=== PATIENT | female | born 1955 | race Caucasian/White ===

== ENCOUNTER 2016-12-05 15:54 | Inpatient (IN) | payer MEDICARE, OTHER ==
[~2016-12-05] VITALS: Ht 170.2 cm; Wt 92.1 kg
[2016-12-05] MEDS ORDERED: VENTOLIN HFA 90 MCG INHALER INH (16:13)
[2016-12-05] MEDS ORDERED: METHADONE HCL 10 MG TABLET PO (16:13)
[2016-12-05] MEDS ORDERED: [UNRECOGNIZED DRUG - SUPPLY] INH (16:13)
--- NOTE | 2016-12-05 16:13 | NUR ---
PATIENT IS AWAKE AND ALERT. SITTER GREG AT BEDSIDE. PT IS COOPERATIVE.
--- NOTE | 2016-12-05 17:24 | NUR ---
REPORT GIVEN TO JEAN-PIERRE IN [facility]. PATIENT AWARE OF PENDING ADMISSION.
--- NOTE | 2016-12-05 18:30 | NUR ---
Pt arrived to unit, depressed, needy, and manipulative. Frequently making requests from staff. States she still actively feels suicidal and has plans to "cut my arteries with a knife." No aggressive or combative behavior noted. Able to make all needs known. Denies pain or discomfort at this time.
[2016-12-05 20:00] VITALS: BP 123/88
--- NOTE | 2016-12-05 21:40 | NUR ---
Pt ANXIOUS, RESTLESS, CRYING AND NEEDY AT BEGINNING OF SHIFT. KLONOPIN 0.5mg ADMINISTERED WITH MODERATE EFFECT. Pt SLEPT FOR APPROXIMATELY 1.5 HOURS AFTER KLONOPIN GIVEN. Pt THEN WOKE UP AND C/O ANXIETY AND INSOMNIA. RESTORIL 15mg ADMINISTERED, WILL MONITOR FOR EFFECT.
--- NOTE | 2016-12-06 04:49 | NUR ---
Pt AWOKE C/O "LOW BLOOD SUGAR". BLOOD SUGAR CHECKED AND RESULTED AT 88.
[2016-12-06 07:30] VITALS: BP 117/83
[2016-12-06 15:13] VITALS: BP 124/91
--- NOTE | 2016-12-06 15:28 | NUR ---
Pt appears to be needy and manipulative. Frequently threatening staff by calling her right of way appraiser, "you guys are gonna be in so much trouble because the person taking care of my service dog is my public safety officer." Pt states that she was suicidal yesterday but today she is OK and wants to be released today. Dr. Hoyt presented her with a 14 day hold. Pt states she only said she wanted to hurt herself so she could get her Ativan and "immediate care." Will continue to monitor.
[2016-12-06 20:00] VITALS: BP 122/89
[2016-12-07 07:58] VITALS: BP 119/66
[2016-12-07 17:22] VITALS: BP 91/63
[2016-12-07 20:15] VITALS: BP 102/65
[2016-12-08 07:30] VITALS: BP 99/62
[2016-12-08 07:41] LABS: BASOPHILS % (AUTO) 0.7 % (0.0-2.0); EOSINOPHILS # (AUTO) 0.2 K/uL (0.0-0.7); EOSINOPHILS % (AUTO) 2.8 % (0.0-7.0); HEMATOCRIT 43.5 % (37-47); HEMOGLOBIN 14.6 G/DL (12.0-16.0); LYMPHOCYTES # (AUTO) 2.7 K/UL (0.8-4.8); MEAN CORPUSCULAR HEMOGLOBIN 30.5 UUG (27.0-31.0); MEAN CORPUSCULAR HGB CONC 34 g/dL (32.0-37.0); MEAN CORPUSCULAR VOLUME 90.9 FL (81.0-99.0); MONOCYTES # (AUTO) 0.5 K/UL (0.1-1.30); MONOCYTES % (AUTO) 7.2 % (0.0-11.0); NEUTROPHILS # (AUTO) 3.1 K/UL (1.8-8.9); NEUTROPHILS % (AUTO) 48.3 % (38.5-71.5); PLATELET COUNT (AUTO) 133 K/UL (150-450); RED BLOOD CELL COUNT(AUTO) 4.79 MIL/UL (4.2-5.4); WHITE BLOOD COUNT (AUTO) 6.5 K/UL (4.0-11.2)
[2016-12-08 08:44] LABS: CREATININE 0.7 mg/dL (0.6-1.3); PHOSPHOROUS 3.8 mg/dL (2.5-4.9); POTASSIUM 4.2 mmol/L (3.5-5.1)
--- NOTE | 2016-12-08 11:10 | NUR ---
Initial discharge instructions: Pt is homeless and does not have a viable plan for discharge.Per pt,she has no family to involved.Pt is refusing senior living and SNF placement.She stated she would like transport back to [facility] and will make her own living arrangements there.SW will speak with pt and MD regarding appropriate discharge plans.SW will form a safe and proper discharge.
[2016-12-08 17:15] VITALS: BP 100/74
[2016-12-08 20:00] VITALS: BP 108/66
[2016-12-09 07:30] VITALS: BP 114/55
[2016-12-09 16:00] VITALS: BP 102/76
[2016-12-09 20:33] VITALS: BP 91/62
--- NOTE | 2016-12-09 22:10 | NUR ---
Patient requested Medication for Insomnia. Temazepam 15mg PO PRN was given for Insomnia at approx. 2200. per patient request and nurse observation. will continue to monitor.
[2016-12-10 07:30] VITALS: BP 112/77
--- NOTE | 2016-12-10 07:31 | NUR ---
PATIENT SLEPT FOR APPROX. 5 HRS LAST NIGHT. HAD TEMAZEPAM 15MG PO PRN FOR INSOMNIA.
--- NOTE | 2016-12-10 08:27 | NUR ---
DC Note: Patient will be transported to [facility] [[address] [place] [address]; ] via private transportation. Spoke with Maritza [phone] who scheduled transportation and stated the patient will be picked up by [facility] [employer] at 11:00 am. Patient is aware and agreeable with discharge plans. Patient reported after picking up her belongings from the [facility], she would check into a hotel. Patient reported she has the financial means and stated her SSI was deposited first week of December. She stated she would check into the [facility] [[address] [place] [id number]; [phone]]. Spoke with the front desk manager mortgage underwriter, Heath who confirmed the patient does have a reservation for today. Per Maritza, [facility] will transport the patient to hotel after she picks up her belongings. Patient refused placement (jail) offered and [facility]. Patient completed the homeless waiver form. Patient will follow-up with her personal cottage master at the [facility] [[address] [place] [address],;[phone]]. Patient will follow-up and address substance abuse issues and tobacco cessation with Nancy GUZMAN on 12/15/16 at 1:00 pm at the [facility] for outpatient mental health. Patient was provided with a brief substance abuse intervention and referred to the [facility] [phone], [facility] [phone]) [phone], and [facility] [phone].
--- NOTE | 2016-12-10 13:03 | NUR ---
PT D/C D TO [facility]IA [facility]SPORTATION IN NO ACUTE DISTRESS WITH ALL BEONGINGS AND F/U TREATMENT PLAN.PATIENT TOOMEDS THIS AM WITHOUT PROBLEMS NO OUTBURSTS NOTEDD
== END 2016-12-10 11:30 | disposition home or self-care (01) | DRG 885 ==
LOC: ER 15:57 → GPS 17:18
PROVIDERS: ADMIT Psychiatry & Neurology Psychiatry; ATTEND Nurse Practitioner Acute Care
DX: F33.2 Major depressive disorder, recurrent severe without psychotic features (principal); F11.20 Opioid dependence, uncomplicated; E78.5 Hyperlipidemia, unspecified; E66.9 Obesity, unspecified; J45.909 Unspecified asthma, uncomplicated; Z59.0 Homelessness; Z79.51 Long term (current) use of inhaled steroids; M19.90 Unspecified osteoarthritis, unspecified site; Z68.31 Body mass index [BMI] 31.0-31.9, adult; F17.210 Nicotine dependence, cigarettes, uncomplicated; Z91.5 Personal history of self-harm; Z88.6 Allergy status to analgesic agent
CPT/HCPCS: 36415; 71010; 83735; 84100; 85025; 93005; A4663